=== PATIENT | female | born 1965 | race Caucasian/White ===

== ENCOUNTER 2017-10-09 16:28 | Emergency (ER) | payer OTHER, BC ==
[2017-10-09] MEDS ORDERED: Azithromycin 250 MG Tab PO ONE (19:01)
[2017-10-09] MEDS ORDERED: cefTRIAXone 500 MG Vial IM ONE (19:01)
[2017-10-09] MEDS ORDERED: metroNIDAZOLE 250 MG Tab PO ONE (19:03)
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
== END 2017-10-09 20:01 | disposition home or self-care (01) ==
LOC: JP.ED 16:28
DX: T74.21XA Adult sexual abuse, confirmed, initial encounter (principal)
CPT/HCPCS: 36415; 86704; 86780; 87210; 87449; 87491; 87591; 96372; 99285; A9270; J0696

== ENCOUNTER 2018-06-01 09:25 | Emergency (ER) | payer BC ==
[2018-06-01] MEDS ORDERED: MVI, Adult with Vitamin K 10 ML, Thiamine 100 MG, Folic Acid 1 MG, Magnesium Sulfate 3 ... IV SCH ×5 (09:45)
[2018-06-01] MEDS ORDERED: MVI, Adult with Vitamin K 10 ML, Thiamine 100 MG, Folic Acid 1 MG, Magnesium Sulfate 3 ... IV ONE ×5 (10:00)
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
== END 2018-06-01 19:45 | disposition other institution (70) ==
LOC: JP.ED 09:25
DX: F10.120 Alcohol abuse with intoxication, uncomplicated (principal); Y90.8 Blood alcohol level of 240 mg/100 ml or more
CPT/HCPCS: 36415; 80053; 85025; 96365; 96366; 99284; G0480; J3411; J3475; J7030; J3490